=== PATIENT | male | born 1995 | race Caucasian/White ===

== ENCOUNTER 2018-04-21 08:59 | Emergency (ER) | payer OTHER ==
[2018-04-21 09:06] VITALS: BP 113/72; PULSE 71; TEMP 97.9; BMI 18.8
--- NOTE | 2018-04-21 09:10 | PDOC ---
History of Present Illness - General Chief Complaint: Urinary Problem Stated Complaint: POSSIBLE UTI Time Seen by Provider: 04/21/18 09:07 History Source: Patient Exam Limitations: No Limitations - History of Present Illness Initial Comments: 04/21/18 10:03 Patient is a 23-year-old male who presents to the emergency department for 1 day of dysuria. Patient states that it hurts when he pees. The pain kept him up last night. States that he is sexually active with one female and uses protection. Denies fevers, chills, back pain, discharge, hematuria, testicular pain, rashes and lesions. Past History - Travel Traveled outside of the country in the last 30 days: No Close contact w/someone who was outside of country & ill: No - Past Medical History Allergies/Adverse Reactions: Allergies Allergy/AdvReac Type Severity Reaction Status Date / Time No Known Allergies Allergy Verified 04/21/18 09:00 Home Medications: Ambulatory Orders Phenazopyridine HCl [Pyridium -] 100 mg PO TID #21 tablet 04/21/18 COPD: No - Surgical History Abdominal Surgery: No Appendectomy: No Cardiac Surgery: No Cholecystectomy: No Gastric Stapling: No GI Surgery: No Lung Surgery: No Neurologic Surgery: No Orthopedic Surgery: No - Immunization History Immunization Up to Date: Yes - Suicide/Smoking/Psychosocial Hx Smoking History: Never smoked Number of Cigarettes Smoked Daily: 0 Hx Alcohol Use: No Drug/Substance Use Hx: No Substance Use Type: None Review of Systems - Review of Systems Able to Perform ROS?: Yes Comments:: 04/21/18 09:08 CONSTITUTIONAL: Absent: fever, chills, diaphoresis, generalized weakness, malaise, loss of appetite GASTROINTESTINAL: Absent: abdominal pain, abdominal distension, nausea, vomiting, diarrhea, constipation, melena, hematochezia GENITOURINARY: Present: dysuria Absent: frequency, urgency, hesitancy, hematuria, flank pain, genital pain SKIN: Absent: rash, itching, pallor NEUROLOGIC: Absent: headache, focal weakness or paresthesias, dizziness, unsteady gait, seizure, mental status changes, bladder or bowel incontinence PSYCHIATRIC: Absent: anxiety, depression, suicidal or homicidal ideation, hallucinations. Is the patient limited Faroese proficient: No *Physical Exam - Vital Signs Last Vital Signs Temp Pulse Resp BP Pulse Ox 97.9 F 71 18 113/72 97 04/21/18 09:01 04/21/18 09:01 04/21/18 09:01 04/21/18 09:01 04/21/18 09:01 - Physical Exam Comments: 04/21/18 09:09 GENERAL: Well developed, well nourished. Awake and alert. No acute distress. ABDOMINAL: Soft. Non-tender. Non-distended. No rebound or guarding. No organomegaly. Normoactive bowel sounds. MUSCULOSKELETAL Normal range of motion at all joints. No bony deformities or tenderness. No CVA tenderness : Testicles descended b/l. Freely moving. Pt. is circumcised, no rashes or lesions noted to the penis, scrotal region. No penile discharge SKIN: Warm and dry. Normal capillary refill. No rashes. No jaundice. NEUROLOGICAL: Alert, awake, appropriate. Normal speech. Toes are down-going bilaterally. Gait is normal without ataxia. Medical Decision Making - Medical Decision Making 04/21/18 10:56 Patient is a 23-year-old male with no past medical history who presents to the emergency department today with dysuria. exam is normal with no evidence of penile discharge, or lesions. UA is negative for infection at this time. Pending urine culture and GC/chlamydia testing. We will treat prophylactically for GC chlamydia. We'll also prescribe Pyridium for symptomatic treatment. Patient is to follow-up with his primary care doctor and a urologist. Return precautions given. We'll discharge home at this time. Patient understands all discharge instructions and all questions were answered. *DC/Admit/Observation/Transfer Diagnosis at time of Disposition: Dysuria - Discharge Dispostion Disposition: HOME Condition at time of disposition: Good Decision to Admit order: No - Prescriptions Prescriptions: Phenazopyridine HCl [Pyridium -] 100 mg PO TID #21 tablet - Referrals Referrals: Franc Alonso MD [Primary Care Provider] - Andrzej Lizarraga MD., [Staff Physician] - - Patient Instructions Printed Discharge Instructions: DI for Dysuria -- Adult Additional Instructions: You have dysuria or painful urination. You were treated prophlactically for STD' s today Please drink plenty of fluids. Take the pyridium three times a day with food to help with your symptoms. Your urine may turn orange. This is a known side effect of the medication. You may take Tylenol or Motrin as needed for pain Please follow up with your primary care doctor this week. A urology follow up has also been given to you. Return to the emergency department if you have fevers, chills, nausea, vomiting , back pain, or have any changes in your symptoms. - Post Discharge Activity Forms/Work/School Notes: Back to Work
[2018-04-21 10:26] LABS: URINE APPEARANCE CLEAR; URINE BILIRUBIN NEGATIVE (<2.0 mg/dL); URINE BLOOD NEGATIVE (NEGATIVE); URINE COLOR YELLOW; URINE GLUCOSE (UA) NEGATIVE (NEGATIVE); URINE KETONE NEGATIVE (NEGATIVE); URINE LEUK ESTERASE NEGATIVE (NEGATIVE); URINE NITRITE NEGATIVE (NEGATIVE); URINE PROTEIN NEGATIVE (NEGATIVE); URINE UROBILINOGEN NEGATIVE mg/dL (0.2-1.0)
[2018-04-21] MEDS ORDERED: AZITHROMYCIN 500 MG TABLET PO ONE (10:49)
[2018-04-21] MEDS ORDERED: AZITHROMYCIN 500 MG TABLET ONE (10:56)
[2018-04-21] MEDS ORDERED: LIDOCAINE HCL 1%, 10 MG/ML (20ML VIAL) ONE (10:57)
== END 2018-04-21 11:03 | disposition home or self-care (01) ==
LOC: JER 08:59
DX: R30.0 Dysuria (principal)
CPT/HCPCS: 36415; 81003; 87086; 87491; 87591; 99281-25